=== PATIENT | female | born 1990 | race Caucasian/White ===

== ENCOUNTER 2021-06-15 02:01 | Emergency (ER) | payer BC, OTHER ==
[2021-06-15] MEDS ORDERED: ONDANSETRON 4 MG/2 ML VIAL IVP STA (02:18)
[2021-06-15 02:26] LABS: BASOPHILS # (AUTO) 0.1 10^3/uL (0.0-0.1); BASOPHILS % (AUTO) 0.3 %; HCT - HEMATOCRIT 44.2 % (37.0-47.0); HGB - HEMOGLOBIN 15.2 g/dL (12.0-16.0); LYMPHOCYTES # (AUTO) 0.7 10^3/uL (1.5-3.5); LYMPHOCYTES % (AUTO) 3.8 %; MEAN CORPUSCULAR HEMOGLOBIN 32.1 pg (27.0-31.0); MEAN CORPUSCULAR HGB CONC 34.4 g/dL (32.0-36.0); MEAN CORPUSCULAR VOLUME 93.2 fL (81.0-99.0); MEAN PLATELET VOLUME 10.6 fL (7.9-10.8); MONOCYTES # (AUTO) 0.4 10^3/uL (0.0-1.0); MONOCYTES % (AUTO) 2.4 %; NEUTROPHILS # (AUTO) 16.6 10^3/uL (1.5-6.6); NEUTROPHILS % (AUTO) 93.1 %; PLT - PLATELET COUNT 343 10^3/uL (130-450); RED BLOOD COUNT 4.74 10^6/uL (4.20-5.40); RED CELL DISTRIBUTION WIDTH 12.7 % (12.0-15.0); WHITE BLOOD COUNT 17.8 x10^3/uL (4.8-10.8)
[2021-06-15 02:39] LABS: ALBUMIN 5.4 g/dL (3.2-5.5); ALBUMIN/GLOBULIN RATIO 1.5 (1.0-2.2); BILIRUBIN,TOTAL 1.3 mg/dL (0.2-1.0); CALCIUM 9.8 mg/dL (8.5-10.3); CREATININE 0.9 mg/dL (0.4-1.0); POTASSIUM 3.5 mmol/L (3.5-5.0); TOTAL PROTEIN 8.9 g/dL (6.7-8.2)
[2021-06-15] MEDS ORDERED: diphenhydrAMINE INJ 50 MG/ML VIAL IVP STA (03:13)
[2021-06-15] MEDS ORDERED: METOCLOPRAMIDE 10 MG/2 ML VIAL IVP STA (03:13)
--- NOTE | 2021-06-15 03:15 | ED Physician Documentation ---
History of Present Illness - Stated complaint Stated Complaint: VOMITING - Chief complaint Chief Complaint: Abd Pain - History obtained from History obtained from: Patient - Additonal information Additional information: The patient presents with complaints of vomiting. This has been going on Since yesterday at noon. She has vomited numerous times and the emesis is nonbloody without coffee-ground appearance. She denies constipation or diarrhea. She has mild diffuse abdominal cramping but denies specific pain. She has had no fevers, chills or sweats. She has never had any intra-abdominal surgeries. Her past history is significant for childhood asthma and bipolar disorder. She has not had any ill contacts. She acknowledges that she uses marijuana heavily and frequently.She does not believe that she is as she has an IUD. She reports irregular menstrual periods. Review of Systems Constitutional: reports: Fatigue. denies: Fever, Chills, Myalgias Cardiac: denies: Chest pain / pressure, Palpitations, Pedal edema Respiratory: denies: Dyspnea, Cough GI: reports: Abdominal Pain, Nausea, Vomiting. denies: Constipation, Diarrhea, Hematemesis : denies: Dysuria PD PAST MEDICAL HISTORY - Past Medical History Past Medical History: Yes Psych: Anxiety, Bipolar disorder Other Past Medical History: Cyclical Vomiting - Past Surgical History Past Surgical History: Yes - Present Medications Home Medications: Ambulatory Orders Medication Instructions Recorded Confirmed Promethazine Supp [Phenergan Supp] 25 mg RI Q8HR PRN #10 supp 06/15/21 - Allergies Allergies/Adverse Reactions: Allergies Allergy/AdvReac Type Severity Reaction Status Date / Time ciprofloxacin [From Cipro] AdvReac Unknown Verified 06/15/21 02:10 methylphenidate AdvReac Unknown Verified 06/15/21 02:10 [From Concerta] - Social History Does the pt smoke?: No Smoking Status: Never smoker Does the pt drink ETOH?: Yes Does the pt have substance abuse?: Yes Substance Use and Type: Marijuana - Immunizations Immunizations are current?: Yes PD ED PE NORMAL - Vitals Vital signs reviewed: Yes - General General: No acute distress - HEENT HEENT: PERRL, EOMI, Moist mucous membranes - Neck Neck: Supple, no meningeal sign - Cardiac Cardiac: RRR, No murmur, No gallop, No rub - Respiratory Respiratory: No respiratory distress, Clear bilaterally - Abdomen Abdomen: Normal bowel sounds, Soft, Non tender, Non distended, No organomegaly - Back Back: No CVA TTP - Derm Derm: Normal color, Warm and dry - Extremities Extremities: No edema Results - Vitals Vitals: Vital Signs - 24 hr 06/15/21 02:08 Temperature 36.1 C L Heart Rate 88 Respiratory 16 Rate Blood Pressure 122/72 O2 Saturation 100 Oxygen O2 Source Room air - Labs Labs: Laboratory Tests 06/15/21 06/15/21 02:21 02:21 WBC 17.8 H RBC 4.74 Hgb 15.2 Hct 44.2 MCV 93.2 MCH 32.1 H MCHC 34.4 RDW 12.7 Plt Count 343 MPV 10.6 Neut # (Auto) 16.6 H Lymph # (Auto) 0.7 L [place] # (Auto) 0.4 Eos # (Auto) 0.0 Baso # (Auto) 0.1 Absolute Nucleated RBC 0.00 Nucleated RBC % 0.0 Sodium 139 Potassium 3.5 Chloride 103 Carbon Dioxide 20 L Anion Gap 16.0 H BUN 16 Creatinine 0.9 Estimated GFR (MDRD) 74 L Glucose 174 H Calcium 9.8 Total Bilirubin 1.3 H AST 16 ALT 16 Alkaline Phosphatase 61 Total Protein 8.9 H Albumin 5.4 Globulin 3.5 Albumin/Globulin Ratio 1.5 Lipase 20 L PD MEDICAL DECISION MAKING - ED course Complexity details: reviewed results, re-evaluated patient, considered differential, d/w patient ED course: The patient was treated in the emergency department with IV fluids, Zofran, Re glan and diphenhydramine. I had her offered her haloperidol but she says that she does not tolerate this. The patient had yet to give us a urine sample but said that she was to go home. She was feeling better and had had no further vomiting while in the emergency department. We had yet to receive the results back on her lithium but she did not want to wait for this. I did explain to her that I would contact her if her lithium level is too high. Otherwise, she is to have close follow-up with her PCP. I wrote a prescription for Phenergan suppositories for her and we reviewed their appropriate use, risks and side effects. She was encouraged to call or return if her symptoms worsen or if new symptoms were to develop. Departure - Departure Disposition: Home, Self Care Clinical Impression: Cannabinoid hyperemesis syndrome Vomiting Qualifiers: Vomiting type: cyclical vomiting syndrome unrelated to migraine Qualified Code(s): R11.15 - Cyclical vomiting syndrome unrelated to migraine Condition: Stable Instructions: Diet Clear Liquid Dc, ED Nausea Vomiting Prescriptions: Promethazine Supp [Phenergan Supp] 25 mg RI Q8HR PRN #10 supp PRN Reason: Nausea / Vomiting
[2021-06-15 04:25] VITALS: BP 116/74
[2021-06-15 04:30] LABS: LITHIUM 0.32 mmol/L
== END 2021-06-15 04:33 | disposition home or self-care (01) ==
LOC: ED 02:01
DX: R11.15 Cyclical vomiting syndrome unrelated to migraine (principal); F12.10 Cannabis abuse, uncomplicated
CPT/HCPCS: 36415; 80053; 80178; 83690; 85025; 96374; 96375; 99284

== ENCOUNTER 2021-06-15 14:28 | Emergency (ER) | payer BC, OTHER ==
[2021-06-15] MEDS ORDERED: SODIUM CHLORIDE 0.9% 1,000 ML IV STA (14:35)
[2021-06-15 14:52] LABS: BASOPHILS % (AUTO) 0.2 %; EOSINOPHILS % (AUTO) 0.1 %; HCT - HEMATOCRIT 43.5 % (37.0-47.0); HGB - HEMOGLOBIN 14.9 g/dL (12.0-16.0); LYMPHOCYTES # (AUTO) 1.4 10^3/uL (1.5-3.5); LYMPHOCYTES % (AUTO) 7.9 %; MEAN CORPUSCULAR HEMOGLOBIN 32.3 pg (27.0-31.0); MEAN CORPUSCULAR HGB CONC 34.3 g/dL (32.0-36.0); MEAN CORPUSCULAR VOLUME 94.4 fL (81.0-99.0); MEAN PLATELET VOLUME 10.4 fL (7.9-10.8); MONOCYTES % (AUTO) 5.6 %; NEUTROPHILS # (AUTO) 14.8 10^3/uL (1.5-6.6); NEUTROPHILS % (AUTO) 85.8 %; PLT - PLATELET COUNT 333 10^3/uL (130-450); RED BLOOD COUNT 4.61 10^6/uL (4.20-5.40); RED CELL DISTRIBUTION WIDTH 12.9 % (12.0-15.0); WHITE BLOOD COUNT 17.2 x10^3/uL (4.8-10.8)
[2021-06-15 15:05] LABS: ALBUMIN 5.2 g/dL (3.2-5.5); ALBUMIN/GLOBULIN RATIO 1.4 (1.0-2.2); BILIRUBIN,TOTAL 1.2 mg/dL (0.2-1.0); CALCIUM 9.7 mg/dL (8.5-10.3); CREATININE 0.8 mg/dL (0.4-1.0); POTASSIUM 3.2 mmol/L (3.5-5.0); TOTAL PROTEIN 8.8 g/dL (6.7-8.2)
[2021-06-15 15:13] VITALS: BP 116/74
== END 2021-06-15 16:56 | disposition left against medical advice (07) ==
LOC: ED 14:28
DX: Z53.21 Procedure and treatment not carried out due to patient leaving prior to being seen by health care provider (principal)
CPT/HCPCS: 36415; 80053; 80178; 83690; 85025; 96374; 96375; 99283; 99284; J1200; J2765